=== PATIENT | male | born 1955 | race Caucasian/White ===

== ENCOUNTER 2017-05-03 01:43 | Day surgery (SDC) | payer OTHER, MEDICARE ==
[2016-11-04 11:21] VITALS: Ht 170.2 cm; Wt 107.5 kg
[~2017-05-03] VITALS: Ht 170.2 cm; Wt 107.5 kg
[~2017-05-03 01:43] MED LIST: ALBU8.5H IH; ALBU8.5H11 INH; ALBU8.5H12 IH; ARIP20TA11 PO; ATOR40TA24 PO; BREX3TAB; CEFU250 PO; CELE-1 PO; CEPH500T7 PO; CLO75 PO; CLON-303 *; CYCL-332 PO; DIA10 PO; DIA5 PO; DULERAPT INH; DULO60CA51 PO; EFFEXOR; FAMO20TA28 PO; FEN145 PO; FER325 PO; FLUT16SP20 NS; FLUT1AER INH; GAB300 PO; HYDR-3083 PO; HYDR-389 PO; HYDR-4308 PO; IBUP800T37 PO; LAMO200T45 PO; LAMO200T46 PO; LEV500 PO; LEVO-3 PO; LEVO-85 PO; LEVO100T95 PO; LEVO137T22 PO; LEVO150T72 PO; LISI-362 PO; LISI-368 PO; LIT300CAP PO; LIT300L FT; LOR5/325 PO; LOR7.5/325 PO; LOR75 PO; LORA-1081 PO; LORA-629 PO; LORA10TA2 PO; MEC125 PO; MEC25 PO; MECL-111 PO; MECL25TA27 PO; MECLAZINE; MEPE100T3 PO; MET500 PO; MIRT-22 PO; OXCA600T30 PO; OXYC1TAB54 PO; PAN40 PO; PANT40TA65 PO; PER PO; PRAV40TA78 PO; PRE20 PO; PRED-314 PO; PREG150C33 PO; RISP2TAB70 PO; SIM40 PO; SIMV-44 PO; TAMS0.4C70 PO; TRAZ150T61 PO; TRAZ50 PO; ULTRAM PO; UNKNOWN EYE DROP; VEN75 PO; VENL100T21 PO; VENTOLIN HFA; WARF2.5T62 PO; [UNRECOGNIZED DRUG - CODE] FT; [UNRECOGNIZED DRUG - CODE] PO; [UNRECOGNIZED DRUG - REMARK]; brio
[2017-05-03] MEDS ORDERED: PROPOFOL EMUL(*) 10MG/ML 20 ML 40 ML ONE (07:08)
--- NOTE | 2017-05-03 07:31 | Post Operative Progress Note ---
Post Operative Progress Note Date: May 03, 2017 Time: 12:15 Surgeon: harshad Anesthesia: dr cueva Pre-Op Diagnosis: dysphagia Post-Op Diagnosis: distal esophageal narrowing Procedure(s): egd with biopsy and balloon dilation to 20 mm URIEL MURPHY MD May 03, 2017 07:31
[2017-05-03] MEDS ORDERED: PANT40TA65 PO (07:33)
--- NOTE | 2017-05-03 07:34 | Short(Outpt) Discharge Summary ---
Discharge Summary Reason for Hosp/Final Diag: (1) Dysphagia Hospital Course & Plan: distal esophageal narrowing and hiatal hernia, balloon dilation ot 20 mm Departure Discharge to: Home Discharge Instructions Home Meds Active Scripts Pantoprazole Sodium (PANTOPRAZOLE SODIUM) 40 Mg Tablet.dr, 40 MG PO QDAY, #90 TAB.SR 4 Refills Prov:URIEL MURPHY MD 05/03/17 Levothyroxine Sodium (LEVOTHYROXINE SODIUM) 100 Mcg Tablet, 100 MCG PO QDAY for 30 Days, TAB Prov:SUSY WHARTON MD 11/04/16 Reported Medications Ibuprofen (IBUPROFEN) 800 Mg Tablet, 1 TAB PO TID Y for PAIN, #30 TAB 11/23/16 Levofloxacin 500 Mg Tab (LEVAQUIN 500 MG TAB) 500 Mg Tablet, 500 MG PO QDAY, # 20 TAB 11/06/16 Famotidine (PEPCID) 20 Mg Tablet, 20 MG PO BID, #20 TAB 11/06/16 Albuterol Sulfate 90 Mcg/Act (PROAIR HFA 90 MCG/ACT) 8.5 Gm Hfa.aer.ad, 2 PUFF IH Q6-8H, INHALER 11/04/16 Fluticasone/Vilanterol 100/25 Mcg/Inh (BREO ELLIPTA 100/25 MCG) 1 Each Aer.pow.ba, 1 INH INH QDAY, INH 11/04/16 [place] Carbonate (LITHIUM CARBONATE) 300 Mg Cap, 300 MG PO TID, CAP 11/04/16 Brexpiprazole (Rexulti) 3 Mg Tablet, 1 TAB DAILY 11/04/16 Meclizine Hcl (MECLIZINE HCL) 25 Mg Tab.chew, 25 MG PO DAILY, TAB.CHEW 07/31/15 Loratadine (LORATADINE) 10 Mg Tablet, 10 MG PO DAILY 07/31/15 Pregabalin (LYRICA) 150 Mg Capsule, 150 MG PO BID, CAPSULE 07/31/15 Mirtazapine (MIRTAZAPINE) 15 Mg Tablet, 15 MG PO QHS 07/31/15 Alprazolam (Alprazolam) 2 Mg Tab.rapdis, 2 MG PO BID Y for ANXIETY, 0 Refills 01/24/11 Lamotrigine (Lamotrigine) 200 Mg Tablet, 200 MG PO BID, 0 Refills 10/18/11 Discontinued Reported Medications Cephalexin 500 Mg Tab (KEFLEX 500 MG TAB) 500 Mg Tablet, 500 MG PO QID, #30 TAB 11/23/16 Famotidine (PEPCID) 20 Mg Tablet, 20 MG PO BID, #20 TAB 11/23/16 Acetaminophen/Hydrocodone (HYDROCODON-ACETAMINOPH 7.5-325) 1 Each Ea, 1 EACH PO Q4-6H Y for PAIN, #30 EA 11/23/16 Meperidine Hcl (DEMEROL) 100 Mg Tablet, 50 MG PO Q6H Y for PAIN, #30 11/06/16 Diet: Regular Activity: As Tolerated URIEL MURPHY MD May 03, 2017 07:34
[2017-05-03 10:23] VITALS: BP 150/89
[2017-05-03] MEDS ORDERED: MIDAZOLAM 2 MG/2 ML VIAL IVP PRN (11:00)
[2017-05-03] MEDS ORDERED: LIDOCAINE/SOD BICARB 8.4% SYR ID ONE (11:00)
[2017-05-03] MEDS ORDERED: NORMOSOL R SOLN(*) 1000 ML BAG 1,000 ML IV PRN (11:00)
[2017-05-03 12:20] VITALS: BP 107/79
[2017-05-03 12:44] VITALS: BP 131/98
[2017-05-03 12:45] VITALS: BP 125/95
--- NOTE | 2017-05-03 22:24 | OPERATIVE REPORT 1 ---
EVENT DATE: May 03, 2017 SURGEON: Dexter Ackerman MD ANESTHESIOLOGIST: Juan Sanford MD ANESTHESIA: Sedation. PREOPERATIVE DIAGNOSIS Dysphagia. POSTOPERATIVE DIAGNOSIS Distal esophageal narrowing. PROCEDURE PERFORMED Esophagogastroduodenoscopy with biopsy of the distal esophagus and balloon dilatation at 20 mm. DESCRIPTION OF PROCEDURE The patient was placed in the left lateral decubitus position and given intravenous sedation. The flexible gastroscope was inserted. The esophagus had some whitish exudate present throughout the esophagus suggestive of possible fungal infection. The GE junction was at 38 cm, and it was narrowed. There was a little bit of resistance with the passage of the scope, but no tumor was noted. The stomach was empty. I passed through the pylorus and second and third portions of the duodenum which were normal. The duodenal bulb was normal. The pylorus was normal. The antrum was normal. The body of the stomach was normal. The scope was retroflexed. He had a hiatal hernia, but no other fundic lesions. The scope was slowly withdrawn. 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 We then laid the balloon across and did progressive dilatation to 20 mL. We then reduced the balloon. We seemed to be able to pass the scope easier. We biopsied the proximal esophagus as well. The patient tolerated the procedure well with no apparent complication. [facility]
== END 2017-05-03 13:05 | disposition home or self-care (01) ==
LOC: OR 01:43
PROVIDERS: ATTEND Surgery
DX: K22.2 Esophageal obstruction (principal)
CPT/HCPCS: 43249; 88305; 88312; 88313; C1726; J2704

== ENCOUNTER → 2017-05-24 | Outpatient (CLI) | payer OTHER, MEDICARE ==
[2016-11-04 11:21] VITALS: BMI 38.9
--- NOTE | 2017-05-24 08:22 | EKG ---
FACILITY: [facility] PATIENT NAME: BOO CEDILLO : [id number] MR: [id number] V: [id number] EXAM DATE: ORDERING PHYSICIAN: DALE CARLIN TECHNOLOGIST: HEIDY Whittington Reason : PREOP-SHOULDER Blood Pressure : / mmHG Vent. Rate : 076 BPM Atrial Rate : 076 BPM P-R Int : 130 ms QRS Dur : 124 ms QT Int : 392 ms P-R-T Axes : 042 -31 052 degrees QTc Int : 441 ms Normal sinus rhythm Left axis deviation Right bundle branch block No ST-T abnormalities Relatively unchanged, but today's ECG has larger QRS in the precordial leads Confirmed by ANGELA MANCERA ([id number]) on 05/24/2017 7:13:09 PM Referred By: KANDICE Confirmed By:ANGELA MANCERA
[2017-05-24 08:23] LABS: PLATELET COUNT, AUTOMATED 234 K/uL (150-450)
== END ==
LOC: LAB 07:50
PROVIDERS: ATTEND Anesthesiology
DX: Z01.812 Encounter for preprocedural laboratory examination (principal); Z01.810 Encounter for preprocedural cardiovascular examination; E03.9 Hypothyroidism, unspecified; M75.101 Unspecified rotator cuff tear or rupture of right shoulder, not specified as traumatic; I45.10 Unspecified right bundle-branch block
CPT/HCPCS: 36415; 82040; 82247; 82310; 82374; 82435; 82565; 82947; 84075; 84132; 84155; 84295; 84443; 84450; 84460; 84520; 85025; 93005

== ENCOUNTER → 2017-05-28 | Outpatient (REF) | payer OTHER, MEDICARE ==
[2016-11-04 11:21] VITALS: BMI 38.9
[2017-05-28 15:50] LABS: PLATELET COUNT, AUTOMATED 196 K/uL (150-450)
== END ==
PROVIDERS: ATTEND Family Medicine
DX: R51 Headache (principal); R52 Pain, unspecified
CPT/HCPCS: 82040; 82247; 82310; 82374; 82435; 82565; 82947; 84075; 84132; 84155; 84295; 84450; 84460; 84520; 85025

== ENCOUNTER → 2017-09-16 | Outpatient (CLI) | payer OTHER, MEDICARE ==
[2016-11-04 11:21] VITALS: BMI 38.9
== END ==
LOC: AMB 15:45
PROVIDERS: ATTEND Nurse Practitioner
DX: J96.91 Respiratory failure, unspecified with hypoxia (principal)
CPT/HCPCS: A0425; A0433

== ENCOUNTER 2018-09-20 03:29 | Day surgery (SDC) | payer OTHER, MEDICARE ==
[2016-11-04 11:21] VITALS: Ht 167.6 cm; Wt 102.5 kg
[~2018-09-20] VITALS: Ht 167.6 cm; Wt 102.5 kg
[~2018-09-20 03:29] MED LIST changes: +ATR80PT PO; -HYDR-4308 PO; +HYDR-654 PO; +TAMS0.4C25 PO; +VENL150C61 PO
[2018-09-20] MEDS ORDERED: GLYCOPYRROLATE 0.2MG/ML 1 ML INJ IVP ONE (07:10)
[2018-09-20 08:25] VITALS: BP 146/83
[2018-09-20] MEDS ORDERED: LIDOCAINE MPF 1% 5 ML VIAL ONE (08:53)
[2018-09-20] MEDS ORDERED: PROPOFOL EMUL(*) 10MG/ML 20 ML 40 ML ONE (08:53)
[2018-09-20] MEDS ORDERED: LIDOCAINE/SOD BICARB 8.4% SYR ID ONE (09:20)
[2018-09-20] MEDS ORDERED: NORMOSOL R SOLN(*) 1000 ML BAG 1,000 ML IV PRN (09:20)
[2018-09-20 10:24] VITALS: BP 101/62
--- NOTE | 2018-09-20 10:36 | Short(Outpt) Discharge Summary ---
Discharge Summary Reason for Hosp/Final Diag: (1) Dysphagia Hospital Course & Plan: pt presented for egd. he tolerated the procedure well. he will be discharged home when criteria met. Departure Discharge to: Home Discharge Instructions Home Meds Active Scripts Pantoprazole Sodium (PANTOPRAZOLE SODIUM) 40 Mg Tablet.dr, 40 MG PO QDAY, #90 TAB.SR 4 Refills Prov:DALE LZU MD 02/04/18 Levothyroxine Sodium (LEVOTHYROXINE SODIUM) 100 Mcg Tablet, 100 MCG PO QDAY for 30 Days, TAB Prov:SUSY WHARTON MD 11/04/16 Reported Medications Venlafaxine Hcl (EFFEXOR XR) 150 Mg Cap.er.24h, 100 MG PO BID 08/23/18 Tamsulosin Hcl (FLOMAX) 0.4 Mg Cap.er.24h, 0.4 MG PO, CAP 08/23/18 Atorvastatin (LIPITOR) 80 Mg Tab, 40 MG PO QDAY, TAB 08/23/18 Fluticasone/Vilanterol 100/25 Mcg/Inh (BREO ELLIPTA 100/25 MCG) 1 Each Aer.pow.ba, 1 INH INH QDAY, INH 11/04/16 [place] Carbonate (LITHIUM CARBONATE) 300 Mg Cap, 300 MG PO TID, CAP 11/04/16 Brexpiprazole (Rexulti) 3 Mg Tablet, 1 TAB DAILY 11/04/16 Pregabalin (LYRICA) 150 Mg Capsule, 150 MG PO BID, CAPSULE 07/31/15 Mirtazapine (MIRTAZAPINE) 15 Mg Tablet, 15 MG PO QHS 07/31/15 Alprazolam (Alprazolam) 2 Mg Tab.rapdis, 2 MG PO BID PRN for ANXIETY, 0 Refills 01/24/11 Lamotrigine (Lamotrigine) 200 Mg Tablet, 200 MG PO BID, 0 Refills 01/24/11 Diet: Regular Activity: As Tolerated Special Instructions: we will call you in 10 days with biopsy results. ANUSHA JAIME Sep 20, 2018 10:36
[2018-09-20 10:44] VITALS: BP 113/69
[2018-09-20 11:19] VITALS: BP 128/83
[2018-09-20 11:21] VITALS: BP 124/79
== END 2018-09-20 11:39 | disposition home or self-care (01) ==
LOC: OR 03:29
PROVIDERS: ATTEND Surgery
DX: K22.2 Esophageal obstruction (principal); K44.9 Diaphragmatic hernia without obstruction or gangrene; K21.0 Gastro-esophageal reflux disease with esophagitis; K29.70 Gastritis, unspecified, without bleeding
CPT/HCPCS: 36415; 43239; 43249; 80178; 88305; 88313; 88342; C1726; J2001; J2704; J3490; 82310; 82374; 82435; 82565; 82947; 84132; 84295; 84520

== ENCOUNTER → 2018-11-28 | Outpatient (CLI) | payer OTHER, MEDICARE ==
[2016-11-04 11:21] VITALS: BMI 38.9
[2018-11-28 08:18] LABS: PLATELET COUNT, AUTOMATED 250 K/uL (150-450)
== END ==
LOC: RAD 08:00 → EDSTATUS 12-31 10:30
PROVIDERS: ATTEND Surgery
DX: G47.30 Sleep apnea, unspecified (principal)
CPT/HCPCS: 36415; 85025